=== PATIENT | male | born 1995 | race Two or more races ===

== ENCOUNTER 2019-06-14 18:11 | Emergency (ER) | payer SELFPAY ==
[~2019-06-14] VITALS: Ht 172.7 cm; Wt 68.0 kg
[2019-06-14 18:15] VITALS: BP 137/87
[2019-06-14 18:49] LABS: Basophils # (auto) 0.1 uL; Basophils % (auto) 1.4 % (0.0-2.0); Eosinophils # (auto) 0.3 uL; Eosinophils % (auto) 3.9 % (0.0-7.0); Hematocrit 47.9 % (41.0-53.0); Lymphocytes % (auto) 23.9 % (10.0-50.0); Mean Corpuscular Hemoglobin 30.2 pg (28.0-32.0); Mean Corpuscular Hgb Conc. 33.4 g/dL (32.0-36.0); Mean Corpuscular Volume 90.5 fL (80.0-100.0); Monocytes # (auto) 0.7 uL; Neutrophils # (auto) 5.1 uL; Neutrophils % (auto) 61.8 % (37.0-80.0); Nucleated Red Blood Cells % 0.1 %; Platelet Count (auto) 329 10^3/uL (140-450); Red Cell Distribution Width 12.8 % (11.8-14.3); White Blood Cell 8.3 10^3/uL (4.4-10.8)
[2019-06-14 19:07] LABS: Salicylate < 1.7 mg/dL (2.8-20.0)
[2019-06-14 19:08] LABS: Albumin 3.6 g/dL (3.4-5.0); Potassium 3.9 mmol/L (3.5-5.1)
[2019-06-14 19:11] LABS: Bilirubin, Total 0.5 mg/dL (0.2-1.0); Total Protein 7.3 g/dL (6.4-8.2)
[2019-06-14 19:26] LABS: Acetaminophen < 2.0 ug/mL (10-30)
[2019-06-14] MEDS ORDERED: OLANZapine 5 MG TAB PO ONE (19:30)
[2019-06-14 20:07] LABS: Amylase 61 U/L (25-115); Blood Alcohol < 3.0 mg/dL (0-5); Lipase 194 U/L (73-393)
== END 2019-06-14 20:59 | disposition left against medical advice (07) ==
LOC: ER 18:11 → EDBD 18:11 → ER 20:59
DX: F20.9 Schizophrenia, unspecified (principal); Z91.19 Patient's noncompliance with other medical treatment and regimen; R10.84 Generalized abdominal pain
CPT/HCPCS: 36415; 80053; 80320; 80329; 82150; 83690; 85025